=== PATIENT | male | born 1995 | race Caucasian/White ===

== ENCOUNTER 2017-11-12 18:51 | Emergency (ER) | payer MEDICAID ==
[~2017-11-12] VITALS: Ht 170.2 cm; Wt 71.1 kg
[~2017-11-12 18:51] MED LIST: HYDR-3965 PO
[2017-11-12 19:11] VITALS: BP 120/58
[2017-11-12] MEDS ORDERED: IBUP-1985 PO (21:00)
== END 2017-11-12 21:16 | disposition home or self-care (01) ==
LOC: ER 18:52
DX: S62.307G Unspecified fracture of fifth metacarpal bone, left hand, subsequent encounter for fracture with delayed healing (principal); S62.306G Unspecified fracture of fifth metacarpal bone, right hand, subsequent encounter for fracture with delayed healing; F12.90 Cannabis use, unspecified, uncomplicated; Z79.1 Long term (current) use of non-steroidal anti-inflammatories (NSAID); Z79.899 Other long term (current) drug therapy; X58.XXXD Exposure to other specified factors, subsequent encounter
CPT/HCPCS: 99283; A6449; 29125